=== PATIENT | male | born 1990 | race Two or more races ===

== ENCOUNTER 2023-05-18 17:11 | Emergency (ER) | payer OTHER ==
[~2023-05-18] VITALS: Ht 172.7 cm; Wt 70.3 kg
[2023-05-18] MEDS ORDERED: ZESTRIL2.5 MG PO (17:41)
[2023-05-18] MEDS ORDERED: DOVATO 50-3001 EACH PO (17:42)
[2023-05-18 20:05] LABS: HEMATOCRIT 44.4 % (39.0-48.0); HEMOGLOBIN 15.2 g/dL (13-16.00); MEAN CELL VOLUME 96.1 fL (80.0-100.00); MEAN CORPUSCULAR HEMOGLOBIN 32.9 pg (27.00-32.0); MEAN CORPUSCULAR HGB CONC 34.3 g/dl (32.0-36.0); PLATELET COUNT 195 K/uL (150-450); RED BLOOD COUNT 4.62 M/uL (4.00-6.00); RED CELL DISTRIBUTION WIDTH 14.3 % (11.5-14.5)
== END 2023-05-18 21:50 | disposition home or self-care (01) ==
LOC: ER 17:11
PROVIDERS: General Practice
DX: J06.9 Acute upper respiratory infection, unspecified (principal); Z20.822 Contact with and (suspected) exposure to COVID-19